=== PATIENT | male | born 1990 | race Caucasian/White ===

== ENCOUNTER 2023-05-29 12:45 | Emergency (ER) | payer BC ==
[2023-05-29 13:24] VITALS: BP 142/84; O2SAT 98
--- NOTE | 2023-05-29 14:03 | XRAY Report ---
PROCEDURE: Finger(s) RT INDICATIONS: Trauma TECHNIQUE: AP hand, 2 views of the right second finger(s) acquired. COMPARISON: None. FINDINGS: Bones: No fractures or dislocations. No suspicious bony lesions. Soft tissues: No suspicious soft tissue calcifications or masses. IMPRESSION: No fracture. No osseous lesion. If symptoms and/or clinical concern for pathology persists, further a ssessment with repeat plain film radiographs (7-10 days) or advanced imaging (CT, MR, bone scan) shou ld be considered. Reviewed by: Myla Padilla MD, PhD on 05/29/2023 2:01 PM [facility] Approved by: Myla Padilla MD, PhD on 05/29/2023 2:01 PM [facility] Station ID: [id number]
--- NOTE | 2023-05-29 14:26 | ED Physician Documentation ---
PD HPI UPPER EXT INJURY - Stated complaint Stated Complaint: RT FINGER INJ - Chief complaint Chief Complaint: Trauma Ext - Additonal information Additional information: Patient accidentally cut his right pointer finger crushed between rebar and hammer. He is able to flex and extend his right pointer finger without difficulty there is tenderness to the PIP joint. He is unsure of his tetanus is up-to-date. There is a superficial abrasion to the volar aspect of his right index finger just above the PIP joint. PD PAST MEDICAL HISTORY - Past Medical History Past Medical History: No Cardiovascular: None Respiratory: None Neuro: None Endocrine/Autoimmune: None GI: GERD : None HEENT: None Psych: Anxiety Musculoskeletal: None Derm: None - Past Surgical History Past Surgical History: Yes HEENT: Tonsil/Adenoidectomy - Present Medications Home Medications: Ambulatory Orders Medication Instructions Recorded Confirmed Famotidine [Pepcid AC] 10 mg PO DAILY 05/29/23 05/29/23 Fluoxetine HCl [Prozac] 20 mg PO DAILY 05/29/23 05/29/23 - Allergies Allergies/Adverse Reactions: Allergies Allergy/AdvReac Type Severity Reaction Status Date / Time No Known Drug Allergies Allergy Verified 05/29/23 13:13 - Social History Does the pt smoke?: No Smoking Status: Never smoker Does the pt drink ETOH?: Yes ETOH Use: Other Does the pt have substance abuse?: Yes Substance Use and Type: Marijuana - Immunizations Immunizations are current?: No Immunizations: Other immun not current PD ED PE NORMAL - Vitals Vital signs reviewed: Yes - General General: Alert and oriented X 3, No acute distress, Well developed/nourished - Free text exam Free text exam: Right index finger: Swelling to PIP joint, tenderness with palpation to PIP joint, able to flex and extend against resistance, mild bruising to PIP joint, superficial abrasion in between DIP and PIP to the volar aspect of the right index finger. Bleeding well-controlled. Results - Vitals Vitals: Vital Signs - 24 hr 05/29/23 13:14 Temperature 36.6 C Heart Rate 87 Respiratory 18 Rate Blood Pressure 142/84 H O2 Saturation 98 Oxygen O2 Source Room air - Rads (name of study) Right finger x-ray Relevant Findings:: Final report received, EMP independent interpretation of test, Other (No acute fractures or dislocations of the right index finger.) PD Medical Decision Making - ED course ED course: 32-year-old female presents emergency department for right index finger pain. X-rays do not reveal any fractures or dislocation. There is a superficial abrasion to the volar aspect of the right index finger in between the PIP and DIP. It does not require any sort of intervention it was cleansed with Hibiclens and water. Bacitracin was applied over the wound and a Band-Aid. Patient was told if he is continuing to have pain to that right index finger to present to primary care provider for further evaluation and repeat imaging. Tylenol and ibuprofen for any pain and discomfort Departure - Departure Disposition: Home, Self Care Clinical Impression: Crushing injury of finger of right hand Abrasion of right index finger Qualifiers: Encounter type: initial encounter Qualified Code(s): S60.410A - Abrasion of right index finger, initial encounter Finger contusion Qualifiers: Encounter type: initial encounter Finger: index finger Damage to nail status: without damage Laterality: right Qualified Code(s): S60.021A - Contusion of right index finger without damage to nail, initial encounter Instructions: ED Contusion Finger Comments: Thank you for trusting us with your care. We have completed x-rays of your right index finger at this time we are not seeing any fractures or dislocations. As we discussed sometimes this can take 7 to 10 days for x-rays to filler picker fractures so if after 7 to 10 days you are still having pain of your right index finger or it has gotten any worse please present to your PCP for possible imaging. You can apply ice to your right finger 20 minutes on 1 hour off And alternate between Tylenol and ibuprofen for any pain or discomfort of your right finger. Make sure that you are continuing to do some gentle range of motion to the right fingers that does not lock up it is very important to keep using with flexing and extending that right index finger. You can apply topical [id number] antibiotic ointment to the open wounds such as bacitracin this is something you can buy from any pharmacy [id number] we can just keep it moist with something simple like Aquaphor or Vaseline covered with a Band-Aid. Wash it with soap and water twice a day. Keep an eye out for signs of infection which include worsening redness, swelling, drainage that is yellow/green, fevers or chills please present back to the emergency department were again with your primary care provider soon as possible if you are starting to notice any signs or symptoms of infection. Forms: PCP List Discharge Date/Time: 05/29/23 14:40
[2023-05-29] MEDS: TETANUS/DIPHTHERIA/PERTUSSIS 0.5 ML SYRINGE IM ONE (14:35)
[2023-05-29] MEDS: ACETAMINOPHEN 325 MG TABLET PO STA (14:35)
[2023-05-29] MEDS: IBUPROFEN 600 MG TABLET PO STA (14:35)
== END 2023-05-29 14:40 | disposition home or self-care (01) ==
LOC: ED 12:45
DX: S67.190A Crushing injury of right index finger, initial encounter (principal); W23.0XXA Caught, crushed, jammed, or pinched between moving objects, initial encounter; Z79.899 Other long term (current) drug therapy; Z23 Encounter for immunization
CPT/HCPCS: 73140; 90471; 90715; 99283; A9270

== ENCOUNTER 2023-06-01 10:04 | Outpatient (CLI) | payer BC ==
[2023-06-01 10:25] LABS: BASOPHILS # (AUTO) 0.1 10^3/uL (0.0-0.1); BASOPHILS % (AUTO) 0.9 %; EOSINOPHILS # (AUTO) 0.2 10^3/uL (0.0-0.7); EOSINOPHILS % (AUTO) 3.1 %; HCT - HEMATOCRIT 45.9 % (42.0-52.0); HGB - HEMOGLOBIN 15.3 g/dL (14.0-18.0); LYMPHOCYTES # (AUTO) 1.8 10^3/uL (1.5-3.5); MEAN CORPUSCULAR HEMOGLOBIN 31.5 pg (27.0-31.0); MEAN CORPUSCULAR HGB CONC 33.3 g/dL (32.0-36.0); MEAN CORPUSCULAR VOLUME 94.4 fL (80.0-94.0); MEAN PLATELET VOLUME 9.6 fL (7.4-11.4); MONOCYTES # (AUTO) 0.4 10^3/uL (0.0-1.0); MONOCYTES % (AUTO) 7.9 %; NEUTROPHILS # (AUTO) 3.1 10^3/uL (1.5-6.6); NEUTROPHILS % (AUTO) 54.7 %; PLT - PLATELET COUNT 241 10^3/uL (130-450); RED BLOOD COUNT 4.86 10^6/uL (4.70-6.10); RED CELL DISTRIBUTION WIDTH 12.7 % (12.0-15.0); WHITE BLOOD COUNT 5.6 x10^3/uL (4.8-10.8)
[2023-06-01 10:45] LABS: ALBUMIN 4.8 g/dL (3.2-5.5); ALBUMIN/GLOBULIN RATIO 1.8 (1.0-2.2); ALKALINE PHOSPHATASE 49 IU/L (42-121); ALT ALANINE AMINOTRANSFERASE 19 IU/L (10-60); AST ASPARTATE AMINOTRANSFERASE 16 IU/L (10-42); BILIRUBIN,TOTAL 0.5 mg/dL (0.2-1.0); BUN - BLOOD UREA NITROGEN 15 mg/dL (6-20); CALCIUM 10.1 mg/dL (8.5-10.3); CARBON DIOXIDE - CO2 35 mmol/L (21-32); CHLORIDE 102 mmol/L (101-111); CHOL/HDL RATIO 3.9 (<5.0); CHOLESTEROL 247 mg/dL; GFR - MDRD 86 (>89); GLUCOSE 89 mg/dL (74-104); HDL CHOLESTEROL 64 mg/dL; LDL CHOLESTEROL,CALCULATED 161 mg/dL; LDL/HDL RATIO 2.5 (<3.6); POTASSIUM 4.8 mmol/L (3.5-4.5); SODIUM 141 mmol/L (135-145); TOTAL PROTEIN 7.4 g/dL (6.4-8.9); TRIGLYCERIDES 111 mg/dL (48-352); VLDL CHOLESTEROL 22 mg/dL
[2023-06-01 10:49] LABS: THYROID STIMULATING HORMONE 1.77 uIU/mL (0.34-5.60)
== END 2023-06-01 10:05 | disposition home or self-care (01) ==
LOC: LAB 10:04
PROVIDERS: ATTEND Nurse Practitioner Family
DX: E78.5 Hyperlipidemia, unspecified (principal)
CPT/HCPCS: 36415; 80053; 80061; 83721; 84443; 85025